=== PATIENT | female | born 1990 | race American Indian/Alaskan Native ===

== ENCOUNTER 2020-06-27 09:58 | Outpatient (CLI) | payer MEDICAID | END 2020-06-27 09:59 | disposition home or self-care (01) | LOC: CARD 09:58 | DX: Z01.818 Encounter for other preprocedural examination (principal) | CPT/HCPCS: 93005 ==

== ENCOUNTER 2021-12-09 12:17 | Emergency (ER) | payer MEDICAID | END 2021-12-10 05:15 | disposition left against medical advice (07) | LOC: ED 12:17 | DX: R07.9 Chest pain, unspecified (principal); Z53.21 Procedure and treatment not carried out due to patient leaving prior to being seen by health care provider ==

== ENCOUNTER 2021-12-10 09:04 | Emergency (ER) | payer MEDICAID ==
[2021-12-10 10:06] VITALS: BP 147/93
--- NOTE | 2021-12-10 10:43 | Event Note ---
ED Screening Note ED Screening Note: CO R CHEST PAIN SP BEING TOLD SHE HAS ESOPHAGUS MASS VSS NO N/V/D CONTROLLING SECRETIONS REFERRED FOR MRI BUT HAS NO INSURANCE This initial assessment/diagnostic orders/clinical plan/treatment(s) is/are subject to change based on patients health status, clinical progression and re- assessment by fellow clinical providers in the ED. Further treatment and workup at subsequent clinical providers discretion. Patient/guardian urged not to elope from the ED as their condition may be serious if not clinically assessed and managed. Initial orders include: EKG XR LABS
== END 2021-12-10 16:53 | disposition left against medical advice (07) ==
LOC: ED 09:04
DX: R07.89 Other chest pain (principal); Z53.21 Procedure and treatment not carried out due to patient leaving prior to being seen by health care provider